=== PATIENT | male | born 1935 | race Caucasian/White ===

== ENCOUNTER 2018-10-21 13:33 | Outpatient (RCR) | payer MEDICARE, BC ==
[~2018-10-21 13:33] MED LIST: CALCIUM + D 601 EAC1 PO; CLARITIN10 M3 PO; DITROPAN5 MG PO; FLUTICASONE; IBUPROFEN200 M2 PO; LIDOCAINE/PRILOCAINE 2.5-2.5% KIT ONE; STOOL SOFTENER PRN; TRIAMTERENE-HC1 EAC3 PO; Z.0.ATENOLOL25 MG PO; Z.0.BACLOFEN10 MG PO; Z.0.CARDURA1 MG PO; Z.0.FOSAMAX70 MG PO; Z.0.MULTIVITAMINS1 E; Z.0.TAMSULOSIN HCL0. PO; [UNRECOGNIZED DRUG - OTHER] PO
== END 2018-10-24 ==
LOC: WCC 13:33
PROVIDERS: ATTEND Family Medicine Adult Medicine
DX: L89.894 Pressure ulcer of other site, stage 4 (principal); L89.613 Pressure ulcer of right heel, stage 3; L89.623 Pressure ulcer of left heel, stage 3; L89.890 Pressure ulcer of other site, unstageable; L89.95 Pressure ulcer of unspecified site, unstageable; I63.9 Cerebral infarction, unspecified; I79.8 Other disorders of arteries, arterioles and capillaries in diseases classified elsewhere; G25.81 Restless legs syndrome; Z74.01 Bed confinement status

== ENCOUNTER 2018-11-16 13:18 | Outpatient (RCR) | payer MEDICARE, BC ==
[2018-11-16] MEDS ORDERED: LIDOCAINE VISC 2% SOLN 15 ML UDC ONE (15:12)
== END 2018-11-23 ==
LOC: WCC 13:18
PROVIDERS: ATTEND Family Medicine Adult Medicine
DX: L89.894 Pressure ulcer of other site, stage 4 (principal); L89.613 Pressure ulcer of right heel, stage 3; L89.623 Pressure ulcer of left heel, stage 3; L89.890 Pressure ulcer of other site, unstageable; L89.95 Pressure ulcer of unspecified site, unstageable; G25.81 Restless legs syndrome; I63.9 Cerebral infarction, unspecified; I79.8 Other disorders of arteries, arterioles and capillaries in diseases classified elsewhere; I82.411 Acute embolism and thrombosis of right femoral vein; I82.431 Acute embolism and thrombosis of right popliteal vein; Z74.01 Bed confinement status